=== PATIENT | female | born 1950 | race Caucasian/White ===

== ENCOUNTER → 2017-06-11 | Outpatient (CLI) | payer BC ==
[2017-06-11 11:21] LABS: ALANINE AMINOTRANSFERASE 44 U/L (9-52); ALBUMIN 4.4 g/dL (3.5-5.0); ALKALINE PHOSPHATASE 126 U/L (38-126); ANION GAP 10 (5-19); ASPARTATE AMINO TRANSFERASE 22 U/L (14-36); BILIRUBIN,DIRECT 0.4 mg/dL (0.0-0.4); BILIRUBIN,TOTAL 0.5 mg/dL (0.2-1.3); BLOOD UREA NITROGEN 15 mg/dL (7-20); CALCIUM 9.8 mg/dL (8.4-10.2); CARBON DIOXIDE 24 mmol/L (22-30); CHLORIDE 106 mmol/L (98-107); CHOLESTEROL 302.39 mg/dL (0-200); CREATININE RESULT 0.79 mg/dL (0.52-1.25); Direct HDL 37 mg/dL (>40); GLUCOSE 143 mg/dL (75-110); POTASSIUM 4.7 mmol/L (3.6-5.0); SODIUM 140.4 mmol/L (137-145); TOTAL PROTEIN 7.7 g/dL (6.3-8.2); TRIGLYCERIDES 244 mg/dL (<150)
[2017-06-11 11:30] LABS: VLDL CHOLESTEROL 48.8 mg/dL (10-31)
[2017-06-11 11:32] LABS: DIRECT LDL 238 mg/dL (<100)
== END ==
LOC: LAB 09:40
PROVIDERS: ATTEND Obstetrics & Gynecology Gynecology
DX: E66.9 Obesity, unspecified (principal); E78.5 Hyperlipidemia, unspecified; E55.9 Vitamin D deficiency, unspecified; R73.09 Other abnormal glucose
CPT/HCPCS: 36415; 80053; 80061; 82306; 83036

== ENCOUNTER → 2017-08-09 | Outpatient (CLI) | payer BC, OTHER ==
--- NOTE | 2017-08-12 08:22 | WOMENS IMAGING REPORT ---
EXAM DESCRIPTION: 3D DX MAMMO LEFT UNILAT; U/S BREAST UNILAT LIMITED COMPLETED DATE/TIME: 08/09/2017 3:55 pm; 08/09/2017 1:43 pm REASON FOR STUDY: NODULAR DENSITY;N63; LEFT BREAST DENSITY N63.0 UNSPECIFIED LUMP IN UNSPECIFIED B REAST COMPARISON: Multiple previous TECHNIQUE: Left breast 90 mediolateral view, left breast broad paddle cone compression in the CC an d MLO orientations. Left breast ultrasound was also performed. LIMITATIONS: None. FINDINGS: BREAST: Left MASSES: In the deep lower outer quadrant about the 4 to 5 o'clock position, 7 mm well-circumscribed m ammographic nodule is present. CALCIFICATIONS: No new or suspicious calcifications. ARCHITECTURAL DISTORTION: None. DEVELOPING DENSITY: None. ASYMMETRY: None noted. OTHER: No other significant findings. Left breast ultrasound: Ultrasound of the lower outer quadrant left breast demonstrates a 7 mm simple cyst, about 8 cm from t he nipple. This correlates with the findings on today's diagnostic mammograms and screening mammogra ms 08/06/2017. Elsewhere in the lateral left breast at about the 3 o'clock position, a 4 mm and 3.8 mm cyst are present. IMPRESSION: No mammographic or sonographic evidence for malignancy left breast BREAST DENSITY: c. The breasts are heterogeneously dense, which may obscure small masses. BIRAD: 2 Benign findings. RECOMMENDATION: RECOMMENDED FOLLOW UP: Please continue yearly screening tomosynthesis in July. SPECIFIC INTERVENTION/IMAGING/CONSULTATION RECOMMENDED:No additional intervention/ imaging/consultati on needed at this time. COMMUNICATION:The negative/benign results were communicated to the patient. COMMENT: The patient has been notified of the results by letter per MQSA requirements. Additional no tification policies are in place for contacting patient with suspicious or incomplete findings. Quality ID #225: The [employer] recommends an annual screening mammogram for women aged 40 years or over. This facility utilizes a reminder system to ensure that all patients receive reminder letters, and/or direct phone calls for appointments. This includes reminders for routine scr eening mammograms, diagnostic mammograms, or other Breast Imaging Interventions when appropriate. Th is patient will be placed in the appropriate reminder system. The [employer] (ACR) has developed recommendations for screening MRI of the breast s in certain patient populations, to be used in conjunction with mammography. Breast MRI surveillanc e may be appropriate for women with more than 20% lifetime risk of developing breast cancer as deter mined by genetic testing, significant family history of the disease, or history of mantle radiation f or Hodgkins Disease. ACR Practice Guidelines 2008. TECHNICAL DOCUMENTATION: FINDING NUMBER: (1) ASSESSMENT: (1) JOB ID: [id number] [employer]- All Rights Reserved
== END ==
LOC: WI 13:09
PROVIDERS: ATTEND Obstetrics & Gynecology Gynecology
DX: N63.20 Unspecified lump in the left breast, unspecified quadrant (principal)
CPT/HCPCS: 77061; 76642; G0206

== ENCOUNTER → 2017-11-12 | Outpatient (CLI) | payer BC ==
[2017-11-13 08:35] LABS: ALANINE AMINOTRANSFERASE 65 U/L (9-52); ALBUMIN 4.1 g/dL (3.5-5.0); ALKALINE PHOSPHATASE 111 U/L (38-126); ANION GAP 11 (5-19); ASPARTATE AMINO TRANSFERASE 47 U/L (14-36); BILIRUBIN,DIRECT 0.2 mg/dL (0.0-0.4); BILIRUBIN,TOTAL 0.4 mg/dL (0.2-1.3); BLOOD UREA NITROGEN 15 mg/dL (7-20); CALCIUM 10.1 mg/dL (8.4-10.2); CARBON DIOXIDE 21 mmol/L (22-30); CHLORIDE 112 mmol/L (98-107); CHOLESTEROL 317.32 mg/dL (0-200); GLUCOSE 139 mg/dL (75-110); POTASSIUM 4.6 mmol/L (3.6-5.0); SODIUM 143.7 mmol/L (137-145); TOTAL PROTEIN 7.3 g/dL (6.3-8.2); TRIGLYCERIDES 288 mg/dL (<150)
[2017-11-13 08:46] LABS: DIRECT LDL 235 mg/dL (<100)
[2017-11-13 08:47] LABS: VLDL CHOLESTEROL 57.6 mg/dL (10-31)
== END ==
LOC: LAB 06:54
PROVIDERS: ATTEND Family Medicine
DX: E78.2 Mixed hyperlipidemia (principal); E11.9 Type 2 diabetes mellitus without complications
CPT/HCPCS: 36415; 80053; 80061; 83036

== ENCOUNTER → 2017-11-21 | Outpatient (CLI) | payer BC ==
--- NOTE | 2017-11-21 08:40 | RADIOLOGY REPORT (SQ) ---
EXAM DESCRIPTION: U/S ABDOMEN LIMITED W/O DOP COMPLETED DATE/TIME: 11/21/2017 8:10 am REASON FOR STUDY: ABN LFT (R94.5) R94.5 ABNORMAL RESULTS OF LIVER FUNCTION STUDIES COMPARISON: None. TECHNIQUE: Dynamic and static grayscale images acquired of the abdomen and recorded on PACS. Additio nal selected color Doppler and spectral images recorded. LIMITATIONS: Midline bowel gas FINDINGS: PANCREAS: Midline pancreas unremarkable LIVER: Normal size. Diffuse increased echogenicity with attenuation of the ultrasound energy from di ffuse fatty infiltration. Posterior right lobe liver not well seen. LIVER VASCULATURE: Normal directional flow of the main portal vein and hepatic veins. GALLBLADDER: No stones. Normal wall thickness. No pericholecystic fluid. ULTRASOUND-DETECTED LANGLEY'S SIGN: Negative. INTRAHEPATIC DUCTS AND COMMON DUCT: CBD and intrahepatic ducts normal caliber. No filling defects. D istal common duct not well seen due to duodenum gas INFERIOR VENA CAVA: Not well seen AORTA: No aneurysm. RIGHT KIDNEY: Normal size. Normal echogenicity. No solid or suspicious masses. No hydronephrosis. No calcifications. PERITONEAL AND RIGHT PLEURAL SPACE: No ascites or effusions. OTHER: No other significant findings. IMPRESSION: Fatty liver, difficult to penetrate with the ultrasound energy No gallstones TECHNICAL DOCUMENTATION: JOB ID: [id number] [employer]- All Rights Reserved
== END ==
LOC: RAD 07:44
PROVIDERS: ATTEND Family Medicine
DX: K76.0 Fatty (change of) liver, not elsewhere classified (principal); R94.5 Abnormal results of liver function studies
CPT/HCPCS: 76705

== ENCOUNTER → 2017-12-16 | Outpatient (CLI) | payer BC ==
[2017-12-16 09:49] LABS: ALANINE AMINOTRANSFERASE 46 U/L (9-52); ALBUMIN 4.5 g/dL (3.5-5.0); ALKALINE PHOSPHATASE 124 U/L (38-126); ASPARTATE AMINO TRANSFERASE 31 U/L (14-36); BILIRUBIN,DIRECT 0.1 mg/dL (0.0-0.4); BILIRUBIN,TOTAL 0.4 mg/dL (0.2-1.3); TOTAL PROTEIN 7.4 g/dL (6.3-8.2)
== END ==
LOC: LAB 09:16
PROVIDERS: ATTEND Family Medicine
DX: R94.5 Abnormal results of liver function studies (principal)
CPT/HCPCS: 36415; 80076

== ENCOUNTER → 2018-02-10 | Outpatient (CLI) | payer BC ==
[2018-02-10 08:22] LABS: ABSOLUTE BASOPHILS # (AUTO) 0.1 10^3/uL (0.0-0.2); ABSOLUTE EOSINOPHILS # (AUTO) 0.2 10^3/uL (0.0-0.6); ABSOLUTE LYMPHOCYTES (AUTO) 3.3 10^3/uL (0.5-4.7); ABSOLUTE MONOCYTES (AUTO) 0.4 10^3/uL (0.1-1.4); ABSOLUTE NEUT (AUTO) 2.4 10^3/uL (1.7-8.2); BASOPHILS % (AUTO) 1.1 % (0-2); EOSINOPHILS % (AUTO) 3.5 % (0-6); HEMATOCRIT 43.9 % (36.0-47.0); HEMOGLOBIN 14.9 g/dL (12.0-15.5); LYMPHOCYTES % (AUTO) 51.2 % (13-45); MEAN CORPUSCULAR HEMOGLOBIN 30.7 pg (27.0-33.4); MEAN CORPUSCULAR HGB CONC 34.1 g/dL (32.0-36.0); MEAN CORPUSCULAR VOLUME 90 fl (80-97); MONOCYTES % (AUTO) 6.8 % (3-13); PLATELET COUNT 201 10^3/uL (150-450); RED BLOOD COUNT 4.87 10^6/uL (3.72-5.28); RED CELL DISTRIBUTION WIDTH 13.8 % (11.5-14.0); SEGMENTED NEUTROPHILS % (AUTO) 37.4 % (42-78); TOTAL CELLS COUNTED % (AUTO) 100 %; WHITE BLOOD COUNT 6.4 10^3/uL (4.0-10.5)
[2018-02-10 08:35] LABS: ALANINE AMINOTRANSFERASE 36 U/L (9-52); ALBUMIN 4.1 g/dL (3.5-5.0); ALKALINE PHOSPHATASE 108 U/L (38-126); ANION GAP 13 (5-19); ASPARTATE AMINO TRANSFERASE 26 U/L (14-36); BILIRUBIN,DIRECT 0.4 mg/dL (0.0-0.4); BILIRUBIN,TOTAL 0.4 mg/dL (0.2-1.3); BLOOD UREA NITROGEN 16 mg/dL (7-20); CALCIUM 9.4 mg/dL (8.4-10.2); CARBON DIOXIDE 23 mmol/L (22-30); CHLORIDE 107 mmol/L (98-107); CHOLESTEROL 274.57 mg/dL (0-200); GLUCOSE 144 mg/dL (75-110); POTASSIUM 4.6 mmol/L (3.6-5.0); SODIUM 143.2 mmol/L (137-145); TOTAL PROTEIN 7.5 g/dL (6.3-8.2); TRIGLYCERIDES 264 mg/dL (<150)
[2018-02-10 08:47] LABS: DIRECT LDL 196 mg/dL (<100)
[2018-02-10 08:56] LABS: VLDL CHOLESTEROL 52.8 mg/dL (10-31)
== END ==
LOC: LAB 07:55
PROVIDERS: ATTEND Family Medicine
DX: E78.2 Mixed hyperlipidemia (principal); E11.9 Type 2 diabetes mellitus without complications
CPT/HCPCS: 36415; 80053; 80061; 83036; 85025

== ENCOUNTER → 2018-06-11 | Outpatient (CLI) | payer BC ==
[2018-06-11 09:22] LABS: ABSOLUTE BASOPHILS # (AUTO) 0.1 10^3/uL (0.0-0.2); ABSOLUTE EOSINOPHILS # (AUTO) 0.2 10^3/uL (0.0-0.6); ABSOLUTE MONOCYTES (AUTO) 0.5 10^3/uL (0.1-1.4); ABSOLUTE NEUT (AUTO) 2.8 10^3/uL (1.7-8.2); BASOPHILS % (AUTO) 1.3 % (0-2); EOSINOPHILS % (AUTO) 3.3 % (0-6); HEMATOCRIT 43.4 % (36.0-47.0); HEMOGLOBIN 14.9 g/dL (12.0-15.5); LYMPHOCYTES % (AUTO) 45.1 % (13-45); MEAN CORPUSCULAR HEMOGLOBIN 30.7 pg (27.0-33.4); MEAN CORPUSCULAR HGB CONC 34.2 g/dL (32.0-36.0); MEAN CORPUSCULAR VOLUME 90 fl (80-97); MONOCYTES % (AUTO) 7.5 % (3-13); PLATELET COUNT 202 10^3/uL (150-450); RED BLOOD COUNT 4.84 10^6/uL (3.72-5.28); SEGMENTED NEUTROPHILS % (AUTO) 42.8 % (42-78); TOTAL CELLS COUNTED % (AUTO) 100 %; WHITE BLOOD COUNT 6.6 10^3/uL (4.0-10.5)
[2018-06-11 09:28] LABS: ALANINE AMINOTRANSFERASE 41 U/L (9-52); ALBUMIN 4.1 g/dL (3.5-5.0); ALKALINE PHOSPHATASE 111 U/L (38-126); ANION GAP 14 (5-19); ASPARTATE AMINO TRANSFERASE 26 U/L (14-36); BILIRUBIN,DIRECT 0.3 mg/dL (0.0-0.4); BILIRUBIN,TOTAL 0.4 mg/dL (0.2-1.3); BLOOD UREA NITROGEN 15 mg/dL (7-20); CALCIUM 9.6 mg/dL (8.4-10.2); CARBON DIOXIDE 22 mmol/L (22-30); CHLORIDE 109 mmol/L (98-107); CHOLESTEROL 248.87 mg/dL (0-200); GLUCOSE 130 mg/dL (75-110); POTASSIUM 4.5 mmol/L (3.6-5.0); SODIUM 144.5 mmol/L (137-145); TOTAL PROTEIN 7.6 g/dL (6.3-8.2); TRIGLYCERIDES 508 mg/dL (<150)
[2018-06-11 09:39] LABS: DIRECT LDL 122 mg/dL (<100)
== END ==
LOC: LAB 08:08
PROVIDERS: ATTEND Family Medicine
DX: E78.2 Mixed hyperlipidemia (principal); K76.0 Fatty (change of) liver, not elsewhere classified; E11.9 Type 2 diabetes mellitus without complications
CPT/HCPCS: 36415; 80053; 80061; 83036; 85025

== ENCOUNTER → 2019-03-20 | Outpatient (CLI) | payer MEDICARE, OTHER ==
--- NOTE | 2019-03-20 13:03 | RADIOLOGY REPORT (SQ) ---
EXAM DESCRIPTION: CHEST PA/LATERAL COMPLETED DATE/TIME: 03/20/2019 12:42 pm REASON FOR STUDY: COUGH COMPARISON: 04/03/2015 EXAM PARAMETERS: NUMBER OF VIEWS: two views TECHNIQUE: Digital Frontal and Lateral radiographic views of the chest acquired. RADIATION DOSE: NA LIMITATIONS: none FINDINGS: LUNGS AND PLEURA: No opacities, masses or pneumothorax. No pleural effusion. MEDIASTINUM AND HILAR STRUCTURES: No masses or contour abnormalities. HEART AND VASCULAR STRUCTURES: Heart normal size. No evidence for failure. BONES: No acute findings. HARDWARE: None in the chest. OTHER: No other significant finding. IMPRESSION: NO SIGNIFICANT RADIOGRAPHIC FINDING IN THE CHEST. TECHNICAL DOCUMENTATION: JOB ID: [id number] [employer]- All Rights Reserved Reading location - IP/workstation name: [email or web address]
== END ==
LOC: OD 11:59
PROVIDERS: ATTEND Family Medicine
DX: R05 Cough (principal)
CPT/HCPCS: 71046

== ENCOUNTER 2019-04-08 22:02 | Emergency (ER) | payer MEDICARE, OTHER ==
[2019-04-08] MEDS ORDERED: MORPHINE SULFATE 10 MG/ML INJ IM ONE (22:13)
--- NOTE | 2019-04-08 23:15 | RADIOLOGY REPORT (SQ) ---
EXAM DESCRIPTION: XR SHOULDER 2 OR MORE VIEWS COMPLETED DATE/TME: 04/08/2019 00:00 CLINICAL HISTORY: 68 years, Female, fell and landed on left arm COMPARISON: None. NUMBER OF VIEWS: Three TECHNIQUE: Internal/external and transscapular Y projections of the left shoulder were obtained LIMITATIONS: None. FINDINGS: Visualized is a comminuted fracture involving the surgical neck of the left humerus. The fracture plane extends into the greater tuberosity. No additional osseous anomalies are appreciated. Visualized portions of the left lung appear clear. IMPRESSION: Comminuted fracture involving the surgical neck of the left humerus with extension into the greater tuberosity. copyright 2010 [employer] acquired by [employer]- All Rights Reserved
--- NOTE | 2019-04-08 23:16 | RADIOLOGY REPORT (SQ) ---
EXAM DESCRIPTION: XR ELBOW 1-2 VIEWS COMPLETED DATE/TME: 04/08/2019 00:00 CLINICAL HISTORY: 68 years Female, fell and landed on left arm COMPARISON: None. Limitation: Oblique lateral. Findings: Small left elbow effusion. Bones, joints, and soft tissues of the LEFT XR ELBOW 2 VIEWS appear otherwise unremarkable. IMPRESSION: Small left elbow effusion. Limitation: Oblique lateral. Consider further evaluation with direct lateral left elbow radiographs and/or CT, as clinically warranted.
[2019-04-08] MEDS ORDERED: FENTANYL CITRATE INJ/PF 100 MCG/2 ML AMPUL IV ONE (23:33)
[2019-04-08] MEDS ORDERED: ONDANSETRON HCL INJ/PF 4 MG/2 ML SDV IV ONE (23:33)
[2019-04-09 00:27] VITALS: BP 122/82
[2019-04-09] MEDS ORDERED: HYDROCODONE/ACETAMINOPHEN 5-325 MG (6 TAB/ER DISP) PO PRN (00:34)
--- NOTE | 2019-04-13 07:30 | ER Document Report ---
Entered by COREY LIU SCRIBE 04/08/19 [id number] Acting as scribe for:YOSEPH TORRES MD ED Fall - General Chief Complaint: Fall Injury Stated Complaint: FALL, LEFT SHOULDER PAIN Time Seen by Provider: 04/08/19 23:15 Primary Care Provider: [facility] [Provider Group] - Follow up in 3-5 days BONITA BOND MD [Primary Care Provider] - Follow up as needed Mode of Arrival: Ambulatory Information source: Patient Notes: Patient is a 68-year-old female with type 2 diabetes, HLD, psoriasis presents to the emergency department complaining of left shoulder pain secondary mechanical trip and fall. Patient states she was walking down a hill when she proceeded to trip over possible tree limbs. She denies any loss of consciousness, nausea or vomiting. Patient is allergic to NSAIDs. TRAVEL OUTSIDE OF THE [place] IN LAST 30 DAYS: No - Related data Allergies/Adverse Reactions: ibuprofen [From Motrin] Adverse Reaction (Verified 04/08/19 22:09) naproxen [Naproxen] Adverse Reaction (Verified 04/08/19 22:09) Past Medical History - General Information source: Patient - Social History Smoking Status: Former Smoker Cigarette use (# per day): No Chew tobacco use (# tins/day): No Smoking Education Provided: No Lives with: Family Family History: Reviewed & Not Pertinent - Past Medical History Cardiac Medical History: Reports: Hx Hypercholesterolemia Endocrine Medical History: Reports: Hx Diabetes Mellitus Type 2 GI Medical History: Reports: Hx Colonoscopy, Hx Endoscopy Skin Medical History: Reports Hx Psoriasis Past Surgical History: Reports: Hx Orthopedic Surgery - R shoulder, R elbow, L thumb Review of Systems - Review of Systems Constitutional: No symptoms reported EENT: No symptoms reported Cardiovascular: No symptoms reported Respiratory: No symptoms reported Gastrointestinal: No symptoms reported Genitourinary: No symptoms reported Female Genitourinary: No symptoms reported Musculoskeletal: See HPI Skin: No symptoms reported Hematologic/Lymphatic: No symptoms reported Neurological/Psychological: No symptoms reported -: Yes All other systems reviewed and negative Physical Exam - Vital signs Vitals: Temp Pulse Resp BP Pulse Ox 98.2 F 85 20 153/94 H 100 04/08/19 22:07 04/08/19 22:07 04/08/19 22:07 04/08/19 22:07 04/08/19 22:07 - Notes Notes: GENERAL: Alert, interacts well. No acute distress. HEAD: Normocephalic, atraumatic. EYES: Pupils equal, round, and reactive to light. Extraocular movements intact. ENT: Oral mucosa moist, tongue midline. NECK: Full range of motion. Supple. Trachea midline. LUNGS: Clear to auscultation bilaterally, no wheezes, rales, or rhonchi. No respiratory distress. HEART: Regular rate and rhythm. No murmurs, gallops, or rubs. ABDOMEN: Soft, non-tender. Non-distended. Bowel sounds present in all 4 quadrants. No guarding, rigidity, or rebound. EXTREMITIES: Left shoulder is tender and swollen. Swelling seems to be mostly laterally. Left elbow is not tender to palpate or with pronation and supination. NEUROLOGICAL: Alert and oriented x3. Normal speech. PSYCH: Normal affect, normal mood. SKIN: Warm, dry, normal turgor. No rashes or lesions noted. Course - Re-evaluation Re-evalutation: 04/09/19 00:32 Shoulder immobilizer was placed by the PCT. It fits well, provides comfort and support when the patient sits up and allows her shoulder and arm to relax. Sensation to the hand is intact in the fingers are warm. - Vital Signs Vital signs: Temp Pulse Resp BP Pulse Ox 98.0 F 84 16 122/82 98 04/09/19 00:20 04/09/19 00:20 04/09/19 00:20 04/09/19 00:20 04/09/19 00:20 - Diagnostic Test Radiology reviewed: Image reviewed, Reports reviewed - Left shoulder x-ray shows a comminuted fracture involving the surgical neck of the left humerus. Fracture plane extends into the greater tuberosity. X-ray of the elbow on the left shows a small effusion. Discharge - Discharge Clinical Impression: Shoulder fracture, left Qualifiers: Encounter type: initial encounter Fracture type: closed Qualified Code(s): S42.92XA - Fracture of left shoulder girdle, part unspecified, initial encounter for closed fracture Condition: Stable Disposition: HOME, SELF-CARE Additional Instructions: Fracture Proximal Humerus There is a fracture at the upper end of the humerus, near the shoulder joint. Your physician has assessed the fracture's severity and has determined that it will heal well without surgery or "setting." The typical shoulder fracture doesn't need a cast. It's best treated by binding the arm down with a special sling. Ice packs are used to reduce pain and swelling. After early healing has occurred, [id number] exercises are prescribed for the shoulder. Complete healing may take three to six weeks, depending on the age of the patient and the severity of the fracture. Call the doctor or return at once if the arm becomes numb, or if pain or swelling become severe. Use the shoulder immobilizer to limit motion at the shoulder and elbow. Use ice packs to the shoulder tonight to help reduce swelling. Take pain medications as needed. Call the [facility] tomorrow to schedule follow-up appointment. RETURN TO THE EMERGENCY ROOM IF ANY NEW OR WORSENING SYMPTOMS. Prescriptions: Oxycodone HCl/Acetaminophen [Percocet 5-325 mg Tablet] 1 tab PO ASDIR PRN #15 t ablet PRN Reason: Referrals: BONITA BOND MD [Primary Care Provider] - Follow up as needed [facility] [Provider Group] - Follow up in 3-5 days Scribe Attestation: 04/08/19 23:31 I personally performed the services described in the documentation, reviewed and edited the documentation which was dictated to the scribe in my presence, and it accurately records my words and actions. I personally performed the services described in the documentation, reviewed and edited the documentation which was dictated to the scribe in my presence, and it accurately records my words and actions.
== END 2019-04-09 01:13 | disposition home or self-care (01) ==
LOC: ER 22:02
DX: S42.92XA Fracture of left shoulder girdle, part unspecified, initial encounter for closed fracture (principal); M25.422 Effusion, left elbow; M25.512 Pain in left shoulder; W01.0XXA Fall on same level from slipping, tripping and stumbling without subsequent striking against object, initial encounter; Z87.891 Personal history of nicotine dependence; E11.9 Type 2 diabetes mellitus without complications
CPT/HCPCS: 73070; 73030; L3650 ×2; J3010; J2270; J2405

== ENCOUNTER → 2020-03-15 | Outpatient (CLI) | payer MEDICARE, OTHER ==
[2020-03-15 13:33] LABS: ABSOLUTE BASOPHILS # (AUTO) 0.1 10^3/uL (0.0-0.2); ABSOLUTE EOSINOPHILS # (AUTO) 0.2 10^3/uL (0.0-0.6); ABSOLUTE MONOCYTES (AUTO) 0.5 10^3/uL (0.1-1.4); ABSOLUTE NEUT (AUTO) 2.8 10^3/uL (1.7-8.2); BASOPHILS % (AUTO) 0.9 % (0-2); EOSINOPHILS % (AUTO) 2.4 % (0-6); HEMATOCRIT 45.5 % (36.0-47.0); HEMOGLOBIN 15.8 g/dL (12.0-15.5); LYMPHOCYTES % (AUTO) 53.2 % (13-45); MEAN CORPUSCULAR HEMOGLOBIN 31.6 pg (27.0-33.4); MEAN CORPUSCULAR HGB CONC 34.7 g/dL (32.0-36.0); MEAN CORPUSCULAR VOLUME 91 fl (80-97); MONOCYTES % (AUTO) 6.2 % (3-13); PLATELET COUNT 208 10^3/uL (150-450); RED BLOOD COUNT 4.98 10^6/uL (3.72-5.28); RED CELL DISTRIBUTION WIDTH 14.3 % (11.5-14.0); SEGMENTED NEUTROPHILS % (AUTO) 37.3 % (42-78); TOTAL CELLS COUNTED % (AUTO) 100 %; WHITE BLOOD COUNT 7.6 10^3/uL (4.0-10.5)
[2020-03-15 13:58] LABS: ALBUMIN 4.4 g/dL (3.5-5.0); ALKALINE PHOSPHATASE 108 U/L (38-126); ANION GAP 10 (5-19); ASPARTATE AMINO TRANSFERASE 25 U/L (14-36); BILIRUBIN,TOTAL 0.5 mg/dL (0.2-1.3); BLOOD UREA NITROGEN 15 mg/dL (7-20); CALCIUM 9.6 mg/dL (8.4-10.2); CARBON DIOXIDE 23 mmol/L (22-30); CHLORIDE 106 mmol/L (98-107); GLUCOSE 115 mg/dL (75-110); POTASSIUM 4.9 mmol/L (3.6-5.0); TOTAL PROTEIN 7.8 g/dL (6.3-8.2)
== END ==
LOC: OD 13:01
PROVIDERS: ATTEND Physician Assistant
DX: N64.52 Nipple discharge (principal)
CPT/HCPCS: 36415; 80053; 84146; 85025

== ENCOUNTER → 2020-03-15 | Outpatient (CLI) | payer MEDICARE, OTHER ==
--- NOTE | 2020-03-15 16:52 | WOMENS IMAGING REPORT ---
EXAM DESCRIPTION: 3D DX MAMMO BILAT; U/S BREAST UNILAT LIMITED IMAGES COMPLETED DATE/TIME: 03/15/2020 12:09 pm; 03/15/2020 12:32 pm REASON FOR STUDY: N64.52; RT BREAST ITCHING AND BROWN DISCHARGE N64.52 NIPPLE DISCHARGE COMPARISON: Multiple since 2008 EXAM PARAMETERS: Standard craniocaudal and mediolateral oblique views of each breast recorded using digital acquisition and breast tomosynthesis. Additional right breast nipple in profile craniocaudad view. Right breast ultrasound also performed. Read with the assistance of CAD: .[facility] - [email or web address] Manager Hardware Version 9.2 LIMITATIONS: None. FINDINGS: RIGHT BREAST MASSES: No suspicious masses. CALCIFICATIONS: No new or suspicious calcifications. ARCHITECTURAL DISTORTION: None. ASYMMETRY: None noted. OTHER: Old biopsy clip right breast upper outer quadrant. LEFT BREAST MASSES: No suspicious masses. CALCIFICATIONS: No new or suspicious calcifications. ARCHITECTURAL DISTORTION: None. ASYMMETRY: None noted. OTHER: No other significant finding. Right breast ultrasound: Patient presents today with dark brown/bloody right nipple discharge. Ultrasound of the right retroa reolar region demonstrates no discrete dilated ducts. No retroareolar masses. 3 mm cyst, 5.5 mm cys t, 4 mm cyst in the retroareolar region. IMPRESSION: No mammographic or sonographic findings to explain history of brown/bloody right nipple discharge. No mammographic evidence for malignancy left breast. BREAST DENSITY: b. There are scattered areas of fibroglandular density. BIRAD: ASSESSMENT: 0, requires further imaging evaluation with bilateral breast MRI with contrast. RECOMMENDATION: RECOMMENDED FOLLOW UP: Bilateral breast MRI for evaluation of brown/bloody nipple di scharge on the right SPECIFIC INTERVENTION/IMAGING/CONSULTATION RECOMMENDED:Bilateral breast MRI recommended COMMUNICATION:Patient notified by letter COMMENT: The patient has been notified of the results by letter per MQSA requirements. Additional no tification policies are in place for contacting patient with suspicious or incomplete findings. Quality ID #[id number]: The [employer] recommends an annual screening mammogram for women aged 40 years or over. This facility utilizes a reminder system to ensure that all patients receive reminder letters, and/or direct phone calls for appointments. This includes reminders for routine scr eening mammograms, diagnostic mammograms, or other Breast Imaging Interventions when appropriate. Th is patient will be placed in the appropriate reminder system. TECHNICAL DOCUMENTATION: FINDING NUMBER: (1) ASSESSMENT: (1) JOB ID: [id number] 2010 [employer]- All Rights Reserved Reading location - IP/workstation name: [email or web address]
== END ==
LOC: WI 11:15
PROVIDERS: ATTEND Family Medicine
DX: N64.52 Nipple discharge (principal)
CPT/HCPCS: 76642; 77066; G0279; 77062

== ENCOUNTER → 2020-03-23 | Outpatient (CLI) | payer MEDICARE, OTHER ==
--- NOTE | 2020-03-24 08:49 | RADIOLOGY REPORT (SQ) ---
EXAM DESCRIPTION: MRI BREAST BILATERAL W/WO IMAGES COMPLETED DATE/TIME: 03/23/2020 1:48 pm REASON FOR STUDY: NIPPLE DISCHARGE Z80.3 FAMILY HISTORY OF MALIGNANT NEOPLASM OF BREAST N64.52 NIP PLE DISCHARGE COMPARISON: None. PATHOLOGIC CORRELATION: Mammograms 03/15/2020 CONTRAST TYPE AND DOSE: 20 mL Prohance. RENAL FUNCTION: Not required. TECHNIQUE: MR imaging performed with a dedicated breast coil. Pre contrast T1 and T2 weighted images . Pre contrast and post contrast enhanced T1 weighted images with fat saturation. Subtraction images, 3D thick and thin MIPS, and kinetic analysis performed on an independent workstat ion. ([employer] workstation) Magnet strength: 1.5 T LIMITATIONS: None. FINDINGS: BREAST DENSITY: b. There are scattered areas of fibroglandular density. BACKGROUND PARENCHYMAL ENHANCEMENT:Mild. RIGHT BREAST: No enhancing or suspicious masses. Mild fibrocystic change. CHEST WALL: Normal tissue planes. No abnormal internal mammary nodes. AXILLA: Normal axillary and retro-pectoral nodes. LEFT BREAST:No enhancing or suspicious masses. Moderate fibrocystic change especially inferior quad rants. CHEST WALL: Normal tissue planes. No abnormal internal mammary nodes. AXILLA: Normal axillary and retro-pectoral nodes. OTHER:No identified liver, bone, or lung lesions. No other significant incidental findings. IMPRESSION: Fibrocystic change. No evidence of malignancy. BIRAD: RIGHT BREAST: 2 Benign findings. LEFT BREAST: 2 Benign findings. RECOMMENDATION: RECOMMENDED FOLLOW-UP: Clinical followup of right nipple discharge. TECHNICAL DOCUMENTATION: JOB ID: [id number] 2010 [employer]- All Rights Reserved Reading location - IP/workstation name: [email or web address]
== END ==
LOC: RAD 12:00
PROVIDERS: ATTEND Physician Assistant
DX: N64.52 Nipple discharge (principal); N60.12 Diffuse cystic mastopathy of left breast; Z80.3 Family history of malignant neoplasm of breast
CPT/HCPCS: 82565; A9576; C8908; 77049

== ENCOUNTER → 2020-08-31 | Outpatient (CLI) | payer MEDICARE, OTHER ==
[2020-08-31 11:59] LABS: ALBUMIN 4.4 g/dL (3.5-5.0); ALKALINE PHOSPHATASE 120 U/L (38-126); ANION GAP 12 (5-19); ASPARTATE AMINO TRANSFERASE 32 U/L (14-36); BILIRUBIN,DIRECT 0.1 mg/dL (0.0-0.4); BILIRUBIN,TOTAL 0.4 mg/dL (0.2-1.3); BLOOD UREA NITROGEN 13 mg/dL (7-20); CALCIUM 9.7 mg/dL (8.4-10.2); CARBON DIOXIDE 20 mmol/L (22-30); CHLORIDE 110 mmol/L (98-107); CHOLESTEROL 141.75 mg/dL (0-200); CREATINE KINASE 33 U/L (30-135); GLUCOSE 118 mg/dL (75-110); POTASSIUM 4.5 mmol/L (3.6-5.0); TOTAL PROTEIN 7.5 g/dL (6.3-8.2); TRIGLYCERIDES 221 mg/dL (<150)
[2020-08-31 12:11] LABS: DIRECT LDL 84 mg/dL (<100)
[2020-08-31 12:13] LABS: VLDL CHOLESTEROL 44.2 mg/dL (10-31)
[2020-09-01 13:37] LABS: CREATININE URINE 256.3 mg/dL (Not Estab.); MICROALBUMIN URINE 30.7 ug/mL (Not Estab.)
--- OUTSIDE RECORDS SUMMARY | 2020-09-01 18:30 | XMS REPORT ---
:1950 Author [facility] [place] [address] [place] [id number] Care Team Providers Name Role Phone Unavailable Unavailable Unavailable Allergies, Adverse Reactions, Alerts Allergy Allergy Status Severity Reaction(s) Onset Inactive Treating C omments Name Type Date Date Clinician IBUPROFEN Drug Active Unknown 2019-03 allergy -24 00:00:0 0 Medications This patient has no known medications. Problems This patient has no known problems. Procedures This patient has no known procedures. Results This patient has no known results. Social History This patient has no known social history. Vital Signs This patient has no known vital signs.
== END ==
LOC: OD 10:57
PROVIDERS: ATTEND Internal Medicine Cardiovascular Disease
DX: E78.01 Familial hypercholesterolemia (principal); E11.9 Type 2 diabetes mellitus without complications; I49.1 Atrial premature depolarization; Z79.899 Other long term (current) drug therapy
CPT/HCPCS: 36415; 80048; 80061; 80076; 82043; 82550; 82570; 83036

== ENCOUNTER → 2020-10-04 | Outpatient (CLI) | payer MEDICARE, OTHER ==
[2020-10-04 12:59] LABS: ALBUMIN 4.4 g/dL (3.5-5.0); ALKALINE PHOSPHATASE 103 U/L (38-126); ASPARTATE AMINO TRANSFERASE 30 U/L (14-36); BILIRUBIN,DIRECT 0.1 mg/dL (0.0-0.4); BILIRUBIN,TOTAL 0.5 mg/dL (0.2-1.3); CHOLESTEROL 159.21 mg/dL (0-200); TOTAL PROTEIN 7.7 g/dL (6.3-8.2); TRIGLYCERIDES 230 mg/dL (<150)
[2020-10-04 13:10] LABS: DIRECT LDL 87 mg/dL (<100)
== END ==
LOC: OD 11:26
PROVIDERS: ATTEND Internal Medicine Cardiovascular Disease
DX: E78.01 Familial hypercholesterolemia (principal); Z79.899 Other long term (current) drug therapy
CPT/HCPCS: 36415; 80061; 80076; 82550